=== PATIENT | male | born 1970 | race African-American/Black ===

== ENCOUNTER 2017-02-04 08:27 | Inpatient (IN) | payer OTHER ==
[2017-02-04 08:52] VITALS: BMI 25.1
--- NOTE | 2017-02-04 11:21 | HP ---
CIWA Score - CIWA Score Nausea/Vomitin-No Nausea/No Vomiting Muscle Tremors: 4-Moderate,w/Arms Extend Anxiety: 4-Mod. Anxious/Guarded Agitation: 4-Moderately Restless Paroxysmal Sweats: 3 Orientation: 0-Oriented Tacttile Disturbances: 0-None Auditory Disturbances: 0-None Visual Disturbances: 0-None Headache: 2-Mild CIWA-Ar Total Score: 17 Admission ROS BHS - HPI Chief Complaint: Withdrawal sx. Allergies/Adverse Reactions: Allergies Allergy/AdvReac Type Severity Reaction Status Date / Time shellfish derived Allergy Severe Hives Verified 02/04/17 09:38 No Known Drug Allergies Allergy Verified 02/04/17 09:38 lactose AdvReac Intermediate Vomiting Verified 02/04/17 09:38 History of Present Illness: 46 y/o man with a long hx. of alcoholism is admitted for detox.Pt. has been in previous detox,denies significant sobriety. Exam Limitations: No Limitations - Ebola screening Have you traveled outside of the country in the last 21 days: No Have you had contact with anyone from an Ebola affected area: No Have you been sick,other than usual withdrawal symptoms: No - Review of Systems Constitutional: Diaphoresis EENT: reports: No Symptoms Reported Respiratory: reports: No Symptoms reported Cardiac: reports: No Symptoms Reported GI: reports: Nausea, Abdominal cramping : reports: No Symptoms Reported Musculoskeletal: reports: No Symptoms Reported Integumentary: reports: Sweating Neuro: reports: Headache, Tremors Endocrine: reports: No Symptoms Reported Hematology: reports: No Symptoms Reported Psychiatric: reports: No Sypmtoms Reported Other Systems: Reviewed and Negative Patient History - Patient Medical History Hx Anemia: No Hx Asthma: No Hx Chronic Obstructive Pulmonary Disease (COPD): No Hx Cancer: No Hx Cardiac Disorders: No Hx Congestive Heart Failure: No Hx Hypertension: No Hx Hypercholesterolemia: No Hx Pacemaker: No HX Cerebrovascular Accident: No Hx Seizures: No Hx Dementia: No Hx Diabetes: No Hx Gastrointestinal Disorders: No Hx Liver Disease: No Hx Genitourinary Disorders: No Hx Sexually Transmitted Disorders: Yes (syphilis) Hx Renal Disease (ESRD): No Hx Thyroid Disease: No Hx Human Immunodeficiency Virus (HIV): No Hx Hepatitis C: No Hx Depression: No Hx Suicide Attempt: No Hx Bipolar Disorder: No Hx Schizophrenia: No - Patient Surgical History Past Surgical History: No Hx Neurologic Surgery: No Hx Cataract Extraction: No Hx Cardiac Surgery: No Hx Lung Surgery: No Hx Breast Surgery: No Hx Breast Biopsy: No Hx Abdominal Surgery: No Hx Appendectomy: No Hx Cholecystectomy: No Hx Genitourinary Surgery: No Hx Section: No Hx Orthopedic Surgery: No Anesthesia Reaction: No - PPD History Previous Implant?: Yes Documented Results: Negative w/proof Implanted On Prior [facility] Admission?: Yes Date: 02/23/16 Results: 0 mm PPD to be Administered?: Yes - Smoking Cessation Smoking history: Current every day smoker Have you smoked in the past 12 months: Yes Aproximately how many cigarettes per day: 8 Cigars Per Day: 0 Hx Chewing Tobacco Use: No Initiated information on smoking cessation: Yes 'Breaking Loose' booklet given: 02/04/17 - Substance & Tx. History Hx Alcohol Use: Yes Hx Substance Use: Yes Substance Use Type: Alcohol, Cocaine, Marijuana Hx Substance Use Treatment: Yes (Detox) - Substances Abused Crack Route: Smoking Frequency: 1-2 times per week Amount used: $30 Age of first use: 20 Date of Last Use: 02/22/17 Alcohol-beer Route: Oral Frequency: Daily Amount used: 1-6 pk. (24 oz.) = 2(6packs of 12 Oz.) Age of first use: 16 Date of Last Use: 02/04/17 Marijuana Route: Smoking Frequency: Daily Amount used: $10 Age of first use: 15 Date of Last Use: 02/03/17 Family Disease History - Family Disease History Family Disease History: Heart Disease: Mother (HTN), CA: Father (PROSTATE CA, alcoholic,), Other: Brother (alcohol,dsa) Admission Physical Exam S - Vital Signs Vital Signs: Vital Signs - 24 hr 02/04/17 08:49 Temperature 97.3 F L Pulse Rate 71 Respiratory 20 Rate Blood Pressure 144/97 - Physical General Appearance: Yes: Alcohol on Breath, Tremorous, Irritable, Sweating HEENTM: Yes: Within Normal Limits Respiratory: Yes: Chest Non-Tender, Lungs Clear, Normal Breath Sounds Neck: Yes: Supple Breast: Yes: Breast Exam Deferred Cardiology: Yes: Regular Rhythm, Regular Rate, S1, S2 Abdominal: Yes: Normal Bowel Sounds, Non Tender, Soft Genitourinary: Yes: Within Normal Limits Back: Yes: Within Normal Limits Musculoskeletal: Yes: Within Normal Limits Extremities: Yes: Tremors Neurological: Yes: Fully Oriented, Alert Integumentary: Yes: Diaphoresis Lymphatic: Yes: Within Normal Limits - Diagnostic (1) Alcohol dependence with uncomplicated withdrawal Current Visit: Yes Status: Chronic (2) Cannabis dependence Current Visit: Yes Status: Chronic (3) Nicotine dependence Current Visit: Yes Status: Chronic (4) Cocaine dependence, uncomplicated Current Visit: Yes Status: Acute Cleared for Admission [facility] - Detox or Rehab [facility] Level of Care: Medically Managed Detox Regimen/Protocol: Librium [facility] Breath Alcohol Content Breath Alcohol Content: 0.052 Urine Drug Screen - Results Drug Screen Negative: No Urine Drug Screen Results: THC-Marijuana
[2017-02-04] MEDS ORDERED: MAGNESIUM CITRATE 300 ML BOTTLE PO PRN (11:25)
[2017-02-04] MEDS ORDERED: MAG HYDROX/AL HYDROX/SIMETH 30 ML UNIT-DOSE CUP PO PRN (11:25)
[2017-02-04] MEDS ORDERED: MENTHOL/PHENOL 1 EACH UD MM PRN (11:25)
[2017-02-04] MEDS ORDERED: guaiFENesin/D-METHORPHAN HB 10 ML UNIT-DOSE CUPS PO PRN (11:25)
[2017-02-04] MEDS ORDERED: chlordiazePOXIDE HCL 25 MG CAPSULE PO PRN (11:25)
[2017-02-04] MEDS ORDERED: IBUPROFEN 400 MG TABLET (FP) PO PRN (11:25)
[2017-02-04] MEDS ORDERED: NICOTINE POLACRILEX 2 MG GUM BUC PRN (11:25)
[2017-02-04] MEDS ORDERED: P-EPHED 60MG/TRIPROLIDI 2.5MG TABLET PO PRN (11:25)
[2017-02-04] MEDS ORDERED: hydrOXYzine PAMOATE 50 MG CAPSULE (FP) PO PRN (11:25)
[2017-02-04] MEDS ORDERED: ACETAMINOPHEN 325 MG TABLET (FP) PO PRN (11:25)
[2017-02-04] MEDS ORDERED: LOPERAMIDE HCL 2 MG CAPSULE PO PRN (11:25)
[2017-02-04] MEDS ORDERED: MAGNESIUM HYDROX 2400MG/30ML ORAL SUSPENSION 30 ML CUP PO PRN (11:25)
[2017-02-04] MEDS ORDERED: chlordiazePOXIDE HCL 25 MG CAPSULE PO ONE (12:41)
[2017-02-04] MEDS: NICOTINE 14 MG/24 HOURS TOPICAL PATCH TD SCH (14:04)
[2017-02-04] MEDS: chlordiazePOXIDE HCL 25 MG CAPSULE PO SCH ×2 (17:14→22:10)
[2017-02-04] MEDS: THIAMINE HCL 100 MG TABLET (FP) PO SCH (22:10)
[2017-02-04] MEDS: hydrOXYzine PAMOATE 50 MG CAPSULE (FP) PO PRN (22:13)
[2017-02-05] MEDS: chlordiazePOXIDE HCL 25 MG CAPSULE PO SCH ×4 (05:42→22:15)
--- NOTE | 2017-02-05 09:15 | EKG ---
Test Reason : Blood Pressure : / mmHG Vent. Rate : 063 BPM Atrial Rate : 063 BPM P-R Int : 194 ms QRS Dur : 088 ms QT Int : 400 ms P-R-T Axes : 086 067 058 degrees QTc Int : 409 ms NORMAL SINUS RHYTHM NORMAL ECG NO PREVIOUS ECGS AVAILABLE Confirmed by CHELO GARCIA, PIPO ([id number]) on 02/05/2017 9:14:30 AM Referred By: Confirmed By:PIPO WHITNEY MD
[2017-02-05 10:09] LABS: MCHC 33.1 g/dl (32.0-35.9); MEAN CELL VOLUME 93.8 fl (80-96); MEAN PLT VOLUME 8.7 fl (7.5-11.1); PLATELET COUNT 166 K/MM3 (134-434); RDW 14.6 % (11.9-15.9); WHITE BLOOD COUNT 4.4 K/mm3 (4.0-10.0)
[2017-02-05] MEDS: NICOTINE 14 MG/24 HOURS TOPICAL PATCH TD SCH (10:13)
[2017-02-05] MEDS: PRENATAL VITAMINS W/ FOLIC ACID TABLET (FP) PO SCH (10:13)
[2017-02-05 10:46] LABS: ALBUMIN 3.7 g/dl (3.4-5.0); ALK PHOS 48 U/L (45-117); ANION GAP 14 (8-16); BILIRUBIN,TOTAL 0.6 mg/dL (0.2-1.0); CALCIUM 8.8 mg/dL (8.5-10.1); CO2 23 mmol/L (21-32); COCKROFT - GAULT 94.84; CREATININE 1.1 mg/dL (0.7-1.3); GLUCOSE,RANDOM 83 mg/dL (74-106); SGOT/AST 39 U/L (15-37); SGPT/ALT 32 U/L (12-78); TOT PROT 7.1 g/dl (6.4-8.2)
--- NOTE | 2017-02-05 17:33 | PN ---
[facility] CIWA - CIWA Score Nausea/Vomitin-Mild Nausea/No Vomiting Muscle Tremors: 4-Moderate,w/Arms Extend Anxiety: 3 Agitation: 2 Paroxysmal Sweats: 1-Minimal Palms Moist Orientation: 0-Oriented Tacttile Disturbances: 2-Mild Itch/Numbness/Burn Auditory Disturbances: 1-Very Mild Visual Disturbances: 2-Mild Sensitivity Headache: 0-None Present CIWA-Ar Total Score: 16 BHS Progress Note (SOAP) Subjective: Interrupted sleep, Tremors, Diarrhea. Objective: PT.A & O X 3, OBSERVED AMBULATING ON UNIT. PT. DENIES CHEST PAIN. 02/05/17 17:29 Vital Signs Temperature 96.8 F L 02/05/17 15:31 Pulse Rate 66 02/05/17 15:31 Respiratory Rate 20 02/05/17 15:31 Blood Pressure 134/90 02/05/17 15:31 O2 Sat by Pulse Oximetry (%) Laboratory Last Values WBC 4.4 K/mm3 (4.0-10.0) 02/05/17 06:10 RBC 4.30 M/mm3 (4.00-5.60) 02/05/17 06:10 Hgb 13.3 GM/dL (11.7-16.9) 02/05/17 06:10 Hct 40.3 % (35.4-49) 02/05/17 06:10 MCV 93.8 fl (80-96) 02/05/17 06:10 MCHC 33.1 g/dl (32.0-35.9) 02/05/17 06:10 RDW 14.6 % (11.9-15.9) 02/05/17 06:10 Plt Count 166 K/MM3 (134-434) D 02/05/17 06:10 MPV 8.7 fl (7.5-11.1) 02/05/17 06:10 Sodium 141 mmol/L (136-145) 02/05/17 06:10 Potassium 4.2 mmol/L (3.5-5.1) 02/05/17 06:10 Chloride 104 mmol/L (98-107) 02/05/17 06:10 Carbon Dioxide 23 mmol/L (21-32) 02/05/17 06:10 Anion Gap 14 (8-16) 02/05/17 06:10 BUN 16 mg/dL (7-18) 02/05/17 06:10 Creatinine 1.1 mg/dL (0.7-1.3) 02/05/17 06:10 Creat Clearance w eGFR > 60 (>60) 02/05/17 06:10 Random Glucose 83 mg/dL (74-106) D 02/05/17 06:10 Calcium 8.8 mg/dL (8.5-10.1) 02/05/17 06:10 Total Bilirubin 0.6 mg/dL (0.2-1.0) 02/05/17 06:10 AST 39 U/L (15-37) H 02/05/17 06:10 ALT 32 U/L (12-78) 02/05/17 06:10 Alkaline Phosphatase 48 U/L (45-117) 02/05/17 06:10 Total Protein 7.1 g/dl (6.4-8.2) 02/05/17 06:10 Albumin 3.7 g/dl (3.4-5.0) 02/05/17 06:10 RPR Titer Reactive 1:1 (NONREACTIVE) H 02/05/17 06:10 T.pallidum Ab (MHA) Non reactive (NONREACTIVE) 02/05/17 06:10 LABS NOTED. PATIENT REPORTS THAT HE COMPLETED FULL COURSE OF TREATMENT FOR SYPHILIS APPROX. 2 YEARS AGO. Assessment: 02/05/17 17:31 WITHDRAWAL SYMPTOMS. Plan: CONTINUE DETOX. ADVISED PATIENT TO FOLLOW-UP WITH [facility] / REHAB MEDICAL PROVIDER AFTER DISCHARGE FROM DETOX FOR GENERAL MEDICAL ASSESSMENT, FOR HISTORY OF SYPHILIS, AND FOR ABNORMAL ADMISSION LAB VALUES.
[2017-02-05] MEDS: THIAMINE HCL 100 MG TABLET (FP) PO SCH (22:15)
[2017-02-05] MEDS: hydrOXYzine PAMOATE 50 MG CAPSULE (FP) PO PRN (22:16)
[2017-02-06] MEDS: chlordiazePOXIDE HCL 25 MG CAPSULE PO SCH ×2 (05:34→10:04)
[2017-02-06 09:35] VITALS: BP 141/88; PULSE 69; TEMP 96.7
[2017-02-06] MEDS: PRENATAL VITAMINS W/ FOLIC ACID TABLET (FP) PO SCH (10:04)
[2017-02-06] MEDS: NICOTINE 14 MG/24 HOURS TOPICAL PATCH TD SCH (10:04)
--- NOTE | 2017-02-06 15:17 | DS ---
[facility] Detox Discharge Summary Admission Date: 02/04/17 Discharge Date: 02/06/17 - History Present History: Alcohol Dependence, Cannabis Dependence Pertinent Past History: Denies - Physical Exam Results Vital Signs: Vital Signs Temperature 96.7 F L 02/06/17 09:35 Pulse Rate 69 02/06/17 09:35 Respiratory Rate 18 02/06/17 09:35 Blood Pressure 141/88 02/06/17 09:35 O2 Sat by Pulse Oximetry (%) Pertinent Admission Physical Exam Findings: Withdrawal symptoms Laboratory Tests 02/05/17 02/05/17 02/05/17 06:10 06:10 06:10 WBC 4.4 RBC 4.30 Hgb 13.3 Hct 40.3 MCV 93.8 MCHC 33.1 RDW 14.6 Plt Count 166 D MPV 8.7 Sodium 141 Potassium 4.2 Chloride 104 Carbon Dioxide 23 Anion Gap 14 BUN 16 Creatinine 1.1 Creat Clearance w eGFR > 60 Random Glucose 83 D Calcium 8.8 Total Bilirubin 0.6 AST 39 H ALT 32 Alkaline Phosphatase 48 Total Protein 7.1 Albumin 3.7 RPR Titer Reactive 1:1 H T.pallidum Ab (MHA) Non reactive Labs noted: treated for latent syphilis in the past, (asymptomatic for syphilis) - Medication Discharge Medications: Ambulatory Orders NK [No Known Home Medication] 07/16/14 - Diagnosis (1) Alcohol dependence with uncomplicated withdrawal Status: Acute (2) Cannabis dependence Status: Chronic (3) Nicotine dependence Status: Chronic - AMA Did Patient Leave Against Medical Advice: Yes
[2017-02-06] MEDS ORDERED: chlordiazePOXIDE 5 MG CAPSULE PO SCH (17:00)
[2017-02-07] MEDS ORDERED: chlordiazePOXIDE HCL 10 MG CAPSULE PO SCH (17:00)
== END 2017-02-06 12:18 | disposition left against medical advice (07) | DRG 770 ==
LOC: YASAS 08:27 → Y3N 12:37
PROVIDERS: ADMIT Internal Medicine; ATTEND Internal Medicine
PROC: HZ2ZZZZ Detoxification Services for Substance Abuse Treatment (ICD-10-PCS; principal; 2017-02-04)
DX: F10.230 Alcohol dependence with withdrawal, uncomplicated (principal); F12.20 Cannabis dependence, uncomplicated; F17.210 Nicotine dependence, cigarettes, uncomplicated; Z87.438 Personal history of other diseases of male genital organs
CPT/HCPCS: 36415; 80053; 81003; 85027; 86593; 86780; 93005; 93010

== ENCOUNTER 2019-03-27 08:24 | Inpatient (IN) | payer OTHER ==
[2019-03-27 09:19] VITALS: BMI 25.7
--- NOTE | 2019-03-27 09:58 | HP ---
CIWA Score Nausea/Vomitin-No Nausea/No Vomiting Muscle Tremors: None Anxiety: 0-No Anxiety, at Ease Agitation: 0-Normal Activity Paroxysmal Sweats: No Perspiration Orientation: 0-Oriented Tacttile Disturbances: 0-None Auditory Disturbances: 0-None Visual Disturbances: 0-None Headache: 2-Mild CIWA-Ar Total Score: 2 - Admission Criteria OASAS Guidelines: Admission for Medically Managed Detox: Requires at least one of the followin. CIWA greater than 12 2. Seizures within the past 24 hours 3. Delirium tremens within the past 24 hours 4. Hallucinations within the past 24 hours 5. Acute intervention needed for co occurring medical disorder 6. Acute intervention needed for co occurring psychiatric disorder 7. Severe withdrawal that cannot be handled at a lower level of care (continued vomiting, continued diarrhea, abnormal vital signs) requiring intravenous medication and/or fluids 8. Admission ROS [facility] Allergies/Adverse Reactions: Allergies Allergy/AdvReac Type Severity Reaction Status Date / Time shellfish derived Allergy Severe Hives Verified 03/27/19 09:09 No Known Drug Allergies Allergy Verified 03/27/19 09:09 lactose AdvReac Intermediate Vomiting Verified 03/27/19 09:09 History of Present Illness: pt here requesting detox from etoh use , reports 6-pk x 2 weeks and sometimes a pint of liquor , denies tremors, seizures or blackouts, starts drinking around 6 am , previous sobriety x 2 years , was going to [employer] meetings in the past, reports he has cravings if not drinking, current symptoms as above, latest use today 6 am , ANDRA 0.000 pmhx : denies pshx : denies psych : denies cannabis : 10 $/day tobacco : 7 cigs/day shx : lives w/ brother , unemployed on public assistance , denies legal issues . Exam Limitations: No Limitations - Ebola screening Have you traveled outside of the country in the last 21 days: No Have you had contact with anyone from an Ebola affected area: No - Review of Systems Constitutional: No Symptoms Reported EENT: reports: No Symptoms Reported Respiratory: reports: No Symptoms reported Cardiac: reports: No Symptoms Reported GI: reports: No Symptoms Reported : reports: No Symptoms Reported Musculoskeletal: reports: Joint Pain (left knee pain after contusion " I bumped it yesterday into a pole , my knee is sore ") Integumentary: reports: No Symptoms Reported Neuro: reports: Headache Endocrine: reports: No Symptoms Reported Psychiatric: reports: Mood/Affect Appropiate, Orientated x3 Patient History - Patient Medical History Hx Anemia: No Hx Asthma: No Hx Chronic Obstructive Pulmonary Disease (COPD): No Hx Cancer: No Hx Cardiac Disorders: No Hx Congestive Heart Failure: No Hx Hypertension: No Hx Hypercholesterolemia: No Hx Pacemaker: No HX Cerebrovascular Accident: No Hx Seizures: No Hx Dementia: No Hx Diabetes: No Hx Gastrointestinal Disorders: No Hx Liver Disease: No Hx Genitourinary Disorders: No Hx Sexually Transmitted Disorders: Yes (syphilis) Hx Renal Disease (ESRD): No Hx Thyroid Disease: No Hx Human Immunodeficiency Virus (HIV): No Hx Hepatitis C: No Hx Depression: No Hx Suicide Attempt: No Hx Bipolar Disorder: No Hx Schizophrenia: No - Patient Surgical History Past Surgical History: No Hx Neurologic Surgery: No Hx Cataract Extraction: No Hx Cardiac Surgery: No Hx Lung Surgery: No Hx Breast Surgery: No Hx Breast Biopsy: No Hx Abdominal Surgery: No Hx Appendectomy: No Hx Cholecystectomy: No Hx Genitourinary Surgery: No Hx Section: No Hx Orthopedic Surgery: No Anesthesia Reaction: No - PPD History Date: 02/06/17 Results: 0 mm - Smoking Cessation Smoking history: Current every day smoker Have you smoked in the past 12 months: Yes Aproximately how many cigarettes per day: 8 Cigars Per Day: 0 Hx Chewing Tobacco Use: No Initiated information on smoking cessation: No - Substances abused Alcohol Substance route: Oral Frequency: Daily Amount used: 6 pack 24oz beer, 1.5 pint ofg Sofia Age of first use: 16 Date of last use: 03/27/19 Marijuana/Hashish Substance route: Smoking Frequency: Daily Amount used: 2 joints. 10 usd Age of first use: 15 Date of last use: 03/26/19 Family Disease History - Family Disease History Family Disease History: Heart Disease: Mother (HTN), CA: Father (PROSTATE [place], alcoholic,), Other: Brother (alcohol,dsa) Admission Physical Exam BHS - Vital Signs Vital Signs: Vital Signs - 24 hr 03/27/19 09:11 Temperature 97.4 F L Pulse Rate 65 Respiratory 20 Rate Blood Pressure 154/87 - Physical General Appearance: Yes: No Apparent Distress HEENTM: Yes: EOMI, Normocephalic, Normal Voice Respiratory: Yes: Chest Non-Tender, Lungs Clear, Normal Breath Sounds Neck: Yes: No masses,lesions,Nodules, Trachea in good position Cardiology: Yes: Regular Rhythm, Regular Rate, S1, S2 Abdominal: Yes: Non Tender, Soft Musculoskeletal: Yes: full range of Motion Extremities: Yes: Normal Range of Motion, Non-Tender Neurological: Yes: Motor Strength 5/5, Normal Mood/Affect Integumentary: Yes: Warm - Diagnostic (1) Cannabis dependence Current Visit: Yes Status: Chronic (2) Nicotine dependence Current Visit: Yes Status: Chronic (3) Alcohol dependence Current Visit: Yes Status: Acute Qualifiers: Substance use status: uncomplicated Qualified Code(s): F10.20 - Alcohol dependence, uncomplicated Breathalyzer - Breathalyzer Breathalyzer: 0 Urine Drug Screen - Test Device Lot number: [id number] Expiration date: 11/30/20 - Control Is test valid?: Yes - Results Drug screen NEGATIVE: Yes Urine drug screen results: THC-Marijuana Inpatient Rehab Admission - Rehab Decision to Admit Inpatient rehab admission?: Yes - Initial Determination Are CD services needed?: Yes Free of communicable disease: Yes Not in need of hospitalization: Yes - Rehab Admission Criteria Previous failed treatment: Yes Poor recovery environment: Yes Comorbidities: No Lacks judgement: Yes Patient is meeting Inpatient Rehab admission criteria:: Yes
[2019-03-27] MEDS ORDERED: P-EPHED 60MG/TRIPROLIDI 2.5MG TABLET PO PRN (10:43)
[2019-03-27] MEDS ORDERED: MAG HYDROX/AL HYDROX/SIMETH 30 ML UNIT-DOSE CUP PO PRN (10:43)
[2019-03-27] MEDS ORDERED: ACETAMINOPHEN 325 MG TABLET (FP) PO PRN (10:43)
[2019-03-27] MEDS ORDERED: MAGNESIUM HYDROX 2400MG/30ML ORAL SUSPENSION 30 ML CUP PO PRN (10:43)
[2019-03-27] MEDS ORDERED: MAGNESIUM CITRATE 300 ML BOTTLE PO PRN (10:43)
[2019-03-27] MEDS ORDERED: LOPERAMIDE HCL 2 MG CAPSULE PO PRN (10:43)
[2019-03-27] MEDS: NICOTINE 14 MG/24 HOURS TOPICAL PATCH TD SCH (12:10)
[2019-03-27 15:34] LABS: HEMATOCRIT 40.4 % (35.4-49); HEMOGLOBIN 13.4 GM/dL (11.7-16.9); MCH 30.6 pg (25.7-33.7); MCHC 33.2 g/dl (32.0-35.9); MEAN CELL VOLUME 92.4 fl (80-96); MEAN PLT VOLUME 8.4 fl (7.5-11.1); RBC 4.37 M/mm3 (4.00-5.60); RDW 16.2 % (11.9-15.9); WHITE BLOOD COUNT 5.9 K/mm3 (4.0-10.0)
[2019-03-27 15:45] LABS: PLATELET COUNT 233 K/MM3 (134-434)
[2019-03-27] MEDS: IBUPROFEN 400 MG TABLET (FP) PO PRN (16:09)
[2019-03-27 16:16] LABS: ALBUMIN 4.2 g/dl (3.4-5.0); BILIRUBIN,TOTAL 0.4 mg/dL (0.2-1); BLOOD UREA NITROGEN 13.8 mg/dL (7-18); CALCIUM 8.8 mg/dL (8.5-10.1); POTASSIUM 4.2 mmol/L (3.5-5.1); TOT PROT 7.8 g/dl (6.4-8.2)
[2019-03-27 18:41] LABS: URINE APPEARANCE CLEAR; URINE BILIRUBIN NEGATIVE (NEGATIVE); URINE COLOR YELLOW; URINE GLUCOSE (UA) NEGATIVE (NEGATIVE); URINE KETONE NEGATIVE (NEGATIVE); URINE LEUK ESTERASE NEGATIVE (NEGATIVE); URINE NITRITE NEGATIVE (NEGATIVE); URINE PROTEIN NEGATIVE (NEGATIVE); URINE UROBILINOGEN 0.2 mg/dL (0.2-1.0)
[2019-03-27] MEDS: THIAMINE HCL 100 MG TABLET (FP) PO SCH (21:49)
[2019-03-27] MEDS: MELATONIN 5 MG TABLETS PO PRN (21:50)
[2019-03-28] MEDS: MENTHOL/PHENOL 1 EACH UD MM PRN ×2 (07:19→21:40)
[2019-03-28] MEDS: IBUPROFEN 400 MG TABLET (FP) PO PRN (10:05)
[2019-03-28] MEDS: PRENATAL VITAMINS W/ FOLIC ACID TABLET (FP) PO SCH (10:05)
[2019-03-28] MEDS: NICOTINE 14 MG/24 HOURS TOPICAL PATCH TD SCH (10:06)
[2019-03-28 10:35] LABS: RPR REACTIVE 1:4 (NONREACTIVE)
[2019-03-28 14:19] LABS: TREPONEMA ANTIBODY NON REACTIVE (NONREACTIVE)
[2019-03-28] MEDS: THIAMINE HCL 100 MG TABLET (FP) PO SCH (21:40)
[2019-03-28] MEDS: MELATONIN 5 MG TABLETS PO PRN (21:40)
[2019-03-29] MEDS: PRENATAL VITAMINS W/ FOLIC ACID TABLET (FP) PO SCH (10:10)
[2019-03-29] MEDS: NICOTINE 14 MG/24 HOURS TOPICAL PATCH TD SCH (10:10)
[2019-03-29] MEDS: MENTHOL/PHENOL 1 EACH UD MM PRN (10:12)
[2019-03-29] MEDS: THIAMINE HCL 100 MG TABLET (FP) PO SCH (21:58)
[2019-03-30] MEDS: NICOTINE 14 MG/24 HOURS TOPICAL PATCH TD SCH (10:09)
[2019-03-30] MEDS: PRENATAL VITAMINS W/ FOLIC ACID TABLET (FP) PO SCH (10:09)
[2019-03-30] MEDS: MENTHOL/PHENOL 1 EACH UD MM PRN (10:10)
[2019-03-30] MEDS: MELATONIN 5 MG TABLETS PO PRN (21:47)
[2019-03-30] MEDS: THIAMINE HCL 100 MG TABLET (FP) PO SCH (21:47)
[2019-03-31] MEDS: MENTHOL/PHENOL 1 EACH UD MM PRN ×2 (06:27→21:55)
[2019-03-31] MEDS: NICOTINE 14 MG/24 HOURS TOPICAL PATCH TD SCH (10:29)
[2019-03-31] MEDS: PRENATAL VITAMINS W/ FOLIC ACID TABLET (FP) PO SCH (10:29)
[2019-03-31] MEDS: THIAMINE HCL 100 MG TABLET (FP) PO SCH (21:54)
[2019-03-31] MEDS: MELATONIN 5 MG TABLETS PO PRN (21:55)
[2019-04-01] MEDS: PRENATAL VITAMINS W/ FOLIC ACID TABLET (FP) PO SCH (10:43)
[2019-04-01] MEDS: NICOTINE 14 MG/24 HOURS TOPICAL PATCH TD SCH (10:43)
[2019-04-01] MEDS: MENTHOL/PHENOL 1 EACH UD MM PRN ×2 (10:44→21:44)
[2019-04-01] MEDS: THIAMINE HCL 100 MG TABLET (FP) PO SCH (21:42)
[2019-04-01] MEDS: MELATONIN 5 MG TABLETS PO PRN (21:43)
[2019-04-02] MEDS: MENTHOL/PHENOL 1 EACH UD MM PRN ×2 (06:17→21:46)
[2019-04-02] MEDS: PRENATAL VITAMINS W/ FOLIC ACID TABLET (FP) PO SCH (10:59)
[2019-04-02] MEDS: NICOTINE 14 MG/24 HOURS TOPICAL PATCH TD SCH (10:59)
[2019-04-02] MEDS: MELATONIN 5 MG TABLETS PO PRN (21:45)
[2019-04-02] MEDS: THIAMINE HCL 100 MG TABLET (FP) PO SCH (21:45)
[2019-04-03] MEDS: MENTHOL/PHENOL 1 EACH UD MM PRN (06:32)
[2019-04-03 07:00] VITALS: BP 132/72; PULSE 72; TEMP 99
--- NOTE | 2019-04-03 10:14 | PN ---
[facility] Progress Note (SOAP) Subjective: PT WENT INTO AN EXPLOSIVE RANT AND HEARD SCREAMING "I JUST WANT TO GET THE F--K OUT OF HERE". PT CONTINUED WITH CURSING [facility] STAFF WITH BACK AND FORTH MOVEMENT RAGE AND BANGING DOOR TO HIS ROOM BECAUSE HE WANTS TO GET OUT OF THE UNIT [facility]. SECURITY WAS CALLED TO FACILITATE PT'S EXIT AND SAFETY OF OTHER PATIENTS ON THE UNIT. PT WAS ADMITTED ON THE 03/27/19 AND WANTS TO LEAVE TODAY. PT WAS UNABLE TO MEET WITH THIS PREPARATOR DUE TO THE EXPLOSIVE BEHAVIOR AND REFUSAL TO SPEAK TO ANY STAFF ON THE UNIT. PT WILL BE DISCHARGED TODAY. PT MET WITH HIS COUNSELOR ON (IN CHART-COUNSELOR'S NOTE). PT WILL FOLLOW UP WITH HOUSING AND CD AFTERCARE REFERRALS AT [facility] [place] AND [facility], RESPECTIVELY RECOMMENDED. Objective: 04/03/19 10:25 Vital Signs - 24 hr 04/03/19 04/03/19 03:30 06:59 Temperature 99.0 F Pulse Rate 72 Respiratory 18 18 Rate Blood Pressure 132/72 Laboratory Tests 03/27/19 03/27/19 03/27/19 11:00 11:00 11:00 WBC 5.9 RBC 4.37 Hgb 13.4 Hct 40.4 MCV 92.4 MCH 30.6 MCHC 33.2 RDW 16.2 H Plt Count 233 D MPV 8.4 Sodium 138 Potassium 4.2 Chloride 105 Carbon Dioxide 30 Anion Gap 4 L BUN 13.8 Creatinine 1.0 Est GFR (CKD-EPI)AfAm 101.26 Est GFR (CKD-EPI)NonAf 87.37 Random Glucose 78 Calcium 8.8 Total Bilirubin 0.4 AST 26 ALT 31 Alkaline Phosphatase 52 Total Protein 7.8 Albumin 4.2 Urine Color Urine Appearance Urine pH Ur Specific [place] Urine Protein Urine Glucose (UA) Urine Ketones Urine Blood Urine Nitrite Urine Bilirubin Urine Urobilinogen Ur Leukocyte Esterase RPR Titer Reactive 1:4 H D T.pallidum Ab (MHA) Non reactive 03/27/19 14:05 WBC RBC Hgb Hct MCV MCH MCHC RDW Plt Count MPV Sodium Potassium Chloride Carbon Dioxide Anion Gap BUN Creatinine Est GFR (CKD-EPI)AfAm Est GFR (CKD-EPI)NonAf Random Glucose Calcium Total Bilirubin AST ALT Alkaline Phosphatase Total Protein Albumin Urine Color Yellow Urine Appearance Clear Urine pH 5.0 Ur Specific [place] 1.006 L Urine Protein Negative Urine Glucose (UA) Negative Urine Ketones Negative Urine Blood Negative Urine Nitrite Negative Urine Bilirubin Negative Urine Urobilinogen 0.2 Ur Leukocyte Esterase Negative RPR Titer T.pallidum Ab (MHA) COPIES OF LAB RESULT GIVEN TO PATIENT. Assessment: 04/03/19 10:25 NAD Plan: FOLLOW UP WITH CD AFTERCARE RECOMMENDATION/MEDICAL MANAGEMENT AT [facility] IF NEEDED. D/C PT TODAY, ACCOMPANIED BY SECURITY OFF THE UNIT.
== END 2019-04-03 09:25 | disposition home or self-care (01) | DRG 772 ==
LOC: YASAS 08:24 → Y5N 10:24
PROVIDERS: ADMIT Neuromusculoskeletal Medicine & OMM; ATTEND Neuromusculoskeletal Medicine & OMM
PROC: HZ42ZZZ Group Counseling for Substance Abuse Treatment, Cognitive-Behavioral (ICD-10-PCS; principal; 2019-03-27)
DX: F10.20 Alcohol dependence, uncomplicated (principal); F12.20 Cannabis dependence, uncomplicated; F17.210 Nicotine dependence, cigarettes, uncomplicated; F91.8 Other conduct disorders; Z87.438 Personal history of other diseases of male genital organs; Z91.19 Patient's noncompliance with other medical treatment and regimen; Z91.013 Allergy to seafood
CPT/HCPCS: 36415; 80053; 81003; 85027; 86593; 86780